=== PATIENT | male | born 1950 | race Caucasian/White ===

== ENCOUNTER 2021-07-23 18:51 | Emergency (ER) | payer BC, MEDICAID ==
[~2021-07-23] VITALS: Ht 167.6 cm; Wt 80.0 kg
[2021-07-24 12:00] VITALS: BP 142/83
== END 2021-07-24 12:04 ==
LOC: ER 18:51
DX: S09.8XXA Other specified injuries of head, initial encounter (principal); I10 Essential (primary) hypertension; F32.9 Major depressive disorder, single episode, unspecified; F20.9 Schizophrenia, unspecified; R26.9 Unspecified abnormalities of gait and mobility; W01.0XXA Fall on same level from slipping, tripping and stumbling without subsequent striking against object, initial encounter; Y93.9 Activity, unspecified; Y92.129 Unspecified place in nursing home as the place of occurrence of the external cause
CPT/HCPCS: 99284